=== PATIENT | female | born 1945 | race Caucasian/White ===

== ENCOUNTER → 2017-11-27 | Outpatient (CLI) | payer MEDICARE, OTHER ==
[2015-07-14 15:20] VITALS: BMI 27.6
[~2017-11-27] MED LIST: ASCO-504 PO; CALC500T6 PO; CHOL500045 PO; CIPR-214 PO; CIPR-344 PO; CIPR500S3 PO; CLIN300C99 PO; CRAN500C10 PO; DOCU-416 PO; ERG400 PO; FLAX100042 PO; GLUC-198 PO; HYDR2TAB74 PO; LATOD OU; LEVO50TA86 PO; LOR5/325 PO; LOSA50TA72 PO; LUTE6CAP11 PO; METO25TA91 PO; METXL50 PO; MULT-820 PO; MULT1TAB64 PO; NEBI2.5T PO; OMEP-218 PO; ONDA4TAB PO; ONDA4TAB9 PO; ONDA4TAB97 PO; OXYC-373 PO; OXYC-865 PO; PANT40TA65 PO; PRA20 PO; PRAV10TA45 PO; PRAV20TA65 PO; RAL60 PO; RANI-366 PO; SUCR1ORA17 PO; VALS160T20 PO; VALS160T22 PO; VITA1TAB7 PO; WARF2.5T11 PO; WARF3TAB14 PO; [UNRECOGNIZED DRUG - CODE] PO
--- NOTE | 2017-11-27 15:47 | RADIOLOGY IMAGING REPORT ---
FACILITY: [facility] PATIENT NAME: Rubi Cueva : 1945 MR: [id number] V: [id number] EXAM DATE: ORDERING PHYSICIAN: AMANUEL NAIK TECHNOLOGIST: Location: [facility] Patient: Rubi Cueva : 1945 Visit/Account:[id number] Date of Sevice: 11/27/2017 THYROID HISTORY: See Dx COMPARISON: 10/30/2016 FINDINGS: SIZE: Normal. Right lobe: 5.0 x 2.1 x 2.4 cm Left lobe: 3.9 x 0.9 x 0.9 cm Isthmus: 2 mm PARENCHYMA: Homogeneous. NODULES: Right lobe: * Within the mid body is a stable heterogeneous solid nodule that measures 3.1 x 1.9 x 2.5 cm * Superiorly there is a stable heterogeneous nodule measuring 1.0 x 0.6 x 1.1 cm * Inferiorly there is a stable heterogeneous nodule measuring 0.8 x 0.6 x 1.0 cm Left lobe: * There is a stable echogenic nodule within the inferior aspect measuring 8 x 5 x 5 mm. Isthmus: * None discrete. VASCULARITY: Within normal limits. ADDITIONAL FINDINGS: None. IMPRESSION: Stable thyroid ultrasound without appreciable change in the appearance of multiple nodules as describ ed REFERENCE: 2015 [place] [employer] Management Guidelines for Adult Patients with Thyroid Nodules and D ifferentiated Thyroid Cancer: The [place] [employer] Guidelines Task Force on Thyroid Nodul es and Differentiated Thyroid Cancer. SONOGRAPHIC PATTERNS: * Benign: Purely cystic nodules (no solid component); estimated risk of malignancy <1 percent; no bi opsy recommended. * Very Low Suspicion: Spongiform or partially cystic nodules without any of the sonographic features described in low, intermediate, or high suspicion patterns; estimated risk of malignancy <3 percent; consider FNA at > 2 cm (Observation without FNA is also a reasonable option). * Low Suspicion: Isoechoic or hyperechoic solid nodule, or partially cystic nodule with eccentric so lid areas, without microcalcification, irregular margin or ETE (extra-thyroidal extension), or taller than wide shape; estimated risk of malignancy 5-10 percent; recommend FNA at >1.5 cm. * Intermediate Suspicion: Hypoechoic solid nodule with smooth margins without microcalcifications, E TE (extra-thyroidal extension), or taller than wide shape; estimated risk of malignancy 10-20 percent ; recommend FNA at > 1 cm. * High Suspicion: Solid hypoechoic nodule or solid hypoechoic component of a partially cystic nodule with one or more of the following features: irregular margins (infiltrative, microlobulated), microc alcifications, taller than wide shape, rim calcifications with small extrusive soft tissue component, evidence of ETE (extra-thyroidal extension); estimated risk of malignancy >70-90 percent; recommend FNA at > 1 cm. NOTES: * Although a sonographically suspicious subcentimeter thyroid nodule without evidence of extrathyroi alejandro extension or sonographically suspicious lymph nodes may be observed with close sonographic follow -up rather than pursuing immediate FNA, patient age and preference may modify decision-making. * A > 50% interval increase in nodule volume and/or development of new suspicious sonographic featur es are felt to be a valid reasons for potential re-aspiration of a nodule previously shown to have be nign FNA cytology. Report Dictated By: Ildefonso Whitley at 11/27/2017 3:32 PM Report E-Signed By: Ildefonso Whitley at 11/27/2017 3:42 PM WSN:[id number]
== END ==
LOC: US 02:05
PROVIDERS: ATTEND Surgery
DX: E04.2 Nontoxic multinodular goiter (principal)
CPT/HCPCS: 76536

== ENCOUNTER 2018-01-19 17:46 | Emergency (ER) | payer MEDICARE, OTHER ==
[2015-07-14 15:20] VITALS: Wt 74.4 kg
[~2018-01-19 17:46] MED LIST changes: -LOSA50TA72 PO; +LOSA50TA74 PO
--- NOTE | 2018-01-19 17:58 | ER Report ---
History and Physical Time Seen By MD: 17:59 Hx. of Stated Complaint: PT REPORTS LOWER ABDOMINAL CRAMPING, HOT FLASHES AND FATIGUE SINCE YESTERDAY. HPI/ROS CHIEF COMPLAINT: Abdominal pain HISTORY OF PRESENT ILLNESS: 72-year-old female patient presents to emergency room with complaint of abdominal pain. Patient states she's been having this for the past several days. States the pain seems to be more in the suprapubic re gion. She states that the pain is fairly constant there is nothing seems to make the pain better or worse. She initially thought that she is having a urinary tract infection and did take some Azo. States that did not help with the pain. She also took some magnesium citrate thinking she may be constipated. She states that that did not seem to help either, however she said state that she had no worsening pain with bowel movements. She denies having any fevers but does state that she is been achy for the past several days. She denies any nausea, vomiting or diarrhea. REVIEW OF SYSTEMS: Respiratory: No cough, no dyspnea. Cardiovascular: No chest pain, no palpitations. Gastrointestinal: As noted above Musculoskeletal: No back pain. Allergies: Coded Allergies: metronidazole (Verified Allergy, Intermediate, RASH, 01/19/18) "BUMPS UNDER SKIN" Penicillins (Verified Allergy, Mild, RASH, 01/19/18) Home Meds Active Scripts Hydrocodone Bit/Acetaminophen (HYDROCODON-ACETAMINOPHEN 5-325) 1 Each Tablet, 1 EACH PO Q4-6H PRN for PAIN, #6 TAB Prov:LARRY COSME [facility] 01/19/18 Moxifloxacin HCl (Moxifloxacin HCl) 400 Mg Tablet, 1 TAB PO DAILY, #9 TAB Prov:LARRY COSME [facility] 01/19/18 Reported Medications Levothyroxine Sodium (LEVOTHYROXINE SODIUM) 50 Mcg Tablet, 25 MCG PO QDAY, TAB 02/08/17 Pravastatin Sodium (PRAVACHOL) 20 Mg Tablet, 10 MG PO QDAY, TAB 11/17/15 Valsartan (DIOVAN) 160 Mg Tablet, 160 MG PO QDAY 02/07/15 Discontinued Reported Medications Vitamin D3/Vitamin K2 (Mk4) (K2 Plus D3 Tablet) 1,000 Unit-100 Mcg Tablet, 1 TAB PO QDAY 11/12/16 Past Medical/Surgical History Patient has a past medical history of DVT, hypertension, hyperlipidemia, eosinophilic esophagitis, gastritis, reflux, hiatal hernia, breast cancer, arthritis, diverticulitis, anxiety. Patient has surgical history of lumpectomy, lymph node removal, laser eye surgery for glaucoma, anemia neck to me, joint replacement, hysterectomy, colonoscopy, cholecystectomy. Patient has a family medical history of cancer. Reviewed Nurses Notes: Yes Hx Smoking: No Smoking Status: Never Smoker Exposure to Second Hand Smoke?: No Hx Substance Use Disorder: No Hx Alcohol Use: No Constitutional Vital Sign - Last 24 Hours 01/19/18 01/19/18 01/19/18 01/19/18 17:53 17:55 18:00 18:01 Pulse 106 106 Resp 18 B/P (MAP) 130/84 130/84 (99) 152/120 (131) Pulse Ox 90 90 01/19/18 01/19/18 01/19/18 01/19/18 18:16 18:30 19:30 20:00 Pulse 95 B/P (MAP) 129/78 (95) 136/66 (89) 137/85 (102) Pulse Ox 85 92 Physical Exam General Appearance: The patient is alert, has no immediate need for airway protection and no current signs of toxicity. Respiratory: Chest is non tender, lungs are clear to auscultation. Cardiac: regular rate and rhythm Gastrointestinal: Abdomen is soft and tender in the periumbilical region., no masses, bowel sounds normal. Musculoskeletal: Neck: Neck is supple and non tender. Extremities have full range of motion and are non tender. Skin: No rashes or lesions. DIFFERENTIAL DIAGNOSIS: After history and physical exam differential diagnosis was considered for abdominal pain including but not limited to appendicitis, cholecystitis, gastritis and urinary tract infection. Medical Decision Making Data Points Result Diagram: 01/19/188 01/19/181817 Laboratory Hematology Test 01/19/18 17:49 01/19/18 18:18 Urine Color [place] Urine Clarity Clear Urine pH Color interference Urine Specific [place] Color interference Urine Protein Color interference Urine Glucose (UA) Color interference Urine Ketones Color interference Urine Blood Color interference Urine Nitrite Color interference Urine Bilirubin Color interference Urine Urobilinogen Color interference Urine Leukocyte Esterase Color interference Urine RBC 1 /HPF (0-2/HPF) Urine WBC 3 /HPF (0-5/HPF) Urine Squamous Epithelial Cells Many /LPF (</=FEW) Urine Bacteria Negative /HPF (NONE-FEW) Urine Mucus Few /HPF (NONE-FEW) Red Blood Count 5.75 M/uL (4.17-5.56) Mean Corpuscular Volume 84.9 fL (80.0-96.0) Mean Corpuscular Hemoglobin 28.8 pg (26.0-33.0) Mean Corpuscular Hemoglobin Concent 33.9 g/dL (32.0-36.0) Red Cell Distribution Width 14.3 % (11.5-14.5) Mean Platelet Volume 8.5 fL (7.2-11.1) Neutrophils (%) (Auto) 75.7 % (39.4-72.5) Lymphocytes (%) (Auto) 13.4 % (17.6-49.6) Monocytes (%) (Auto) 7.4 % (4.1-12.4) Eosinophils (%) (Auto) 2.4 % (0.4-6.7) Basophils (%) (Auto) 1.1 % (0.3-1.4) Nucleated RBC Relative Count (auto) 0.0 /100WBC Neutrophils # (Auto) 10.9 K/uL (2.0-7.4) Lymphocytes # (Auto) 1.9 K/uL (1.3-3.6) Monocytes # (Auto) 1.1 K/uL (0.3-1.0) Eosinophils # (Auto) 0.3 K/uL (0.0-0.5) Basophils # (Auto) 0.2 K/uL (0.0-0.1) Nucleated RBC Absolute Count (auto) 0.00 K/uL Sodium Level 136 mmol/L (137-145) Potassium Level 3.6 mmol/L (3.5-5.0) Chloride Level 100 mmol/L (98-107) Carbon Dioxide Level 24 mmol/L (22-31) Blood Urea Nitrogen 18 mg/dl (7-18) Creatinine 0.90 mg/dl (0.52-1.04) Glomerular Filtration Rate Calc > 60.0 Random Glucose 138 mg/dl (75-110) Calcium Level 9.2 mg/dl (8.4-10.2) Total Bilirubin 0.7 mg/dl (0.2-1.3) Aspartate Amino Transf (AST/SGOT) 67 U/L (0-35) Alanine Aminotransferase (ALT/SGPT) 64 U/L (0-56) Alkaline Phosphatase 120 U/L (0-126) C-Reactive Protein 5.2 mg/dl (<1.0) Total Protein 7.4 g/dl (6.3-8.2) Albumin 4.6 g/dl (3.5-5.0) Chemistry Test 01/19/18 17:49 01/19/18 18:18 Urine Color [place] Urine Clarity Clear Urine pH Color interference Urine Specific [place] Color interference Urine Protein Color interference Urine Glucose (UA) Color interference Urine Ketones Color interference Urine Blood Color interference Urine Nitrite Color interference Urine Bilirubin Color interference Urine Urobilinogen Color interference Urine Leukocyte Esterase Color interference Urine RBC 1 /HPF (0-2/HPF) Urine WBC 3 /HPF (0-5/HPF) Urine Squamous Epithelial Cells Many /LPF (</=FEW) Urine Bacteria Negative /HPF (NONE-FEW) Urine Mucus Few /HPF (NONE-FEW) White Blood Count 14.4 k/uL (4.5-11.0) Red Blood Count 5.75 M/uL (4.17-5.56) Hemoglobin 16.5 g/dL (12.0-16.0) Hematocrit 48.9 % (34.0-47.0) Mean Corpuscular Volume 84.9 fL (80.0-96.0) Mean Corpuscular Hemoglobin 28.8 pg (26.0-33.0) Mean Corpuscular Hemoglobin Concent 33.9 g/dL (32.0-36.0) Red Cell Distribution Width 14.3 % (11.5-14.5) Platelet Count 238 K/uL (150-450) Mean Platelet Volume 8.5 fL (7.2-11.1) Neutrophils (%) (Auto) 75.7 % (39.4-72.5) Lymphocytes (%) (Auto) 13.4 % (17.6-49.6) Monocytes (%) (Auto) 7.4 % (4.1-12.4) Eosinophils (%) (Auto) 2.4 % (0.4-6.7) Basophils (%) (Auto) 1.1 % (0.3-1.4) Nucleated RBC Relative Count (auto) 0.0 /100WBC Neutrophils # (Auto) 10.9 K/uL (2.0-7.4) Lymphocytes # (Auto) 1.9 K/uL (1.3-3.6) Monocytes # (Auto) 1.1 K/uL (0.3-1.0) Eosinophils # (Auto) 0.3 K/uL (0.0-0.5) Basophils # (Auto) 0.2 K/uL (0.0-0.1) Nucleated RBC Absolute Count (auto) 0.00 K/uL Glomerular Filtration Rate Calc > 60.0 Calcium Level 9.2 mg/dl (8.4-10.2) Total Bilirubin 0.7 mg/dl (0.2-1.3) Aspartate Amino Transf (AST/SGOT) 67 U/L (0-35) Alanine Aminotransferase (ALT/SGPT) 64 U/L (0-56) Alkaline Phosphatase 120 U/L (0-126) C-Reactive Protein 5.2 mg/dl (<1.0) Total Protein 7.4 g/dl (6.3-8.2) Albumin 4.6 g/dl (3.5-5.0) Urinalysis Test 01/19/18 17:49 Urine Color [place] Urine Clarity Clear Urine pH Color interference Urine Specific [place] Color interference Urine Protein Color interference Urine Glucose (UA) Color interference Urine Ketones Color interference Urine Blood Color interference Urine Nitrite Color interference Urine Bilirubin Color interference Urine Urobilinogen Color interference Urine Leukocyte Esterase Color interference Urine RBC 1 /HPF (0-2/HPF) Urine WBC 3 /HPF (0-5/HPF) Urine Squamous Epithelial Cells Many /LPF (</=FEW) Urine Bacteria Negative /HPF (NONE-FEW) Urine Mucus Few /HPF (NONE-FEW) EKG/Imaging Imaging CT abdomen and pelvis with IV contrast Indication: Abdominal pain. Comparison: 06/01/2016.. Technique: Axial CT images were obtained through the abdomen and pelvis during injection of nonionic iodinated intravenous contrast. Reformatted coronal and sagittal images were also obtained. One of the following dose optimization techniques was utilized in the performance of this exam: Automated exposure control; adjustment of the mA and/or kV according to the patient's size; or use of an iterative shannon nstruction technique. Specific details can be referenced in the facility's radiology CT exam operational policy. Contrast: 75 ml of Isovue-370 IV contrast. Findings: Lower lung camacho: The lateral aspect right lower lobe shows a stable 3 mm nodule. As this is less than 6 mm, no further evaluation. Lung bases otherwise clear. Liver: Stable cyst in the right lobe liver. No other focal abnormality. Biliary: Status post cholecystectomy. The biliary system is unremarkable. Pancreas: No focal abnormality. Spleen: Normal appearance. Adrenal glands: Unremarkable. Kidneys / retroperitoneum: Both kidneys show scarring without stones, hydronephrosis or discrete lesions. Bowel / peritoneum / mesenteries: Sigmoid colon show several diverticula. There is pericolonic inflammation. No discrete indication of perforation or fluid collection. The colon shows other scattered diverticula without pericolonic inflammation. No other focal abnormality of the colon. The appendix appears normal. Small bowel shows no focal abnormality or obstruction. However there is a stable small duodenal diverticulum at the second portion the duodenum measuring 1.1 cm. No focal abnormality. Stomach is unremarkable small hiatal hernia present. Tiny bit of free fluid in pelvis. No fluid collections, free air or other areas of inflammation. Tiny umbilical hernia containing fat. Lymph node assessment: No pathologic adenopathy identified. Pelvic structures: The uterus is not visualized may been surgically removed. The remaining pelvic structures visualized within normal limits. Vessels: Mild atherosclerotic calcifications seen throughout a nonaneurysmal abdominal aorta and branches. Musculoskeletal / Body wall: No acute or aggressive osseous abnormality. IMPRESSION: 1. Uncomplicated sigmoid diverticulitis. No discrete indication of perforation or fluid collection. 2. Other stable chronic findings as above. I called report to LARRY COSME at 01/19/2018 8:08 PM. Report Dictated By: Bradley Griffiths at 01/19/2018 7:49 PM Report E-Signed By: Bradley Griffiths at 01/19/2018 8:08 PM ED Course/Re-evaluation ED Course Patient was admitted to an exam room, history of physical were obtained. Differential diagnoses were considered. On examination patient did have some suprapubic tenderness. A CBC, CMP, urinalysis, CT scan of abdomen and pelvis was done. Patient had a negative urinalysis, 3 white blood cells per high-power field. Patient did have a white count of 14,000. Lites lites were unremarkable. CT scan did show a sigmoid diverticulitis. I discussed the findings with patient. We discussed treatment options. Patient states she had a bad reaction t o Flagyl in the past. We will go ahead and treat her with moxifloxacin. She is to follow-up with her primary care provider in the next week. She is to take her medications as prescribed. We did give her a prescription for a lump supply pain medication. Patient verbalized understanding and agreement with plan. Decision to Disposition Date: Jan 19, 2018 Decision to Disposition Time: 20:44 Depart Departure Latest Vital Signs Vital Signs Date Time Temp Pulse Resp B/P (MAP) Pulse Ox O2 Delivery O2 Flow Rate FiO2 01/19/18 20:00 95 137/85 (102) 92 01/19/18 17:53 18 Impression: Primary Impression: Sigmoid diverticulitis Condition: Improved Disposition: HOME OR SELF-CARE Referrals: TAY FOX (PCP) New Scripts Hydrocodone Bit/Acetaminophen (HYDROCODON-ACETAMINOPHEN 5-325) 1 Each Tablet 1 EACH PO Q4-6H PRN for PAIN, #6 TAB Prov: LARRY COSME 01/19/18 Moxifloxacin HCl (Moxifloxacin HCl) 400 Mg Tablet 1 TAB PO DAILY, #9 TAB Prov: LARRY COSME 01/19/18 Patient Instructions: Diverticulitis (ED) Additional Instructions: Increase fluid intake. Get plenty of rest. Follow up with your primary care provider in the next week. Return to the ER if condition worsens. Take your medication as prescribed. LARRY COSME Jan 19, 2018 17:58
[2018-01-19] MEDS ORDERED: NS(*) 0.9% 1000 ML BAG 1,000 ML IV ONE (18:07)
[2018-01-19] MEDS ORDERED: IOPAMIDOL 76% 75 ML INFUS BTL 75 ML ONE (18:28)
[2018-01-19 18:29] LABS: PLATELET COUNT, AUTOMATED 238 K/uL (150-450)
[2018-01-19 20:00] VITALS: BP 137/85
--- NOTE | 2018-01-19 20:11 | RADIOLOGY IMAGING REPORT ---
FACILITY: [facility] [place] PATIENT NAME: Rubi Cueva : 1945 MR: [id number] V: [id number] EXAM DATE: ORDERING PHYSICIAN: LARRY COSME TECHNOLOGIST: [place] [facility] [place] C[place] : 1945 Visit/Account:[id number] Date of Sevice: 01/19/2018 CT abdomen and pelvis with IV contrast Indication: Abdominal pain. Comparison: 06/01/2016.. Technique: Axial CT images were obtained through the abdomen and pelvis during injection of nonioni c iodinated intravenous contrast. Reformatted coronal and sagittal images were also obtained. One of the following dose optimization techniques was utilized in the performance of this exam: Autom ated exposure control; adjustment of the mA and/or kV according to the patient's size; or use of an i terative reconstruction technique. Specific details can be referenced in the facility's radiology C T exam operational policy. Contrast: 75 ml of Isovue-370 IV contrast. Findings: Lower lung camacho: The lateral aspect right lower lobe shows a stable 3 mm nodule. As this is less th an 6 mm, no further evaluation. Lung bases otherwise clear. Liver: Stable cyst in the right lobe liver. No other focal abnormality. Biliary: Status post cholecystectomy. The biliary system is unremarkable. Pancreas: No focal abnormality. Spleen: Normal appearance. Adrenal glands: Unremarkable. Kidneys / retroperitoneum: Both kidneys show scarring without stones, hydronephrosis or discrete lesi ons. Bowel / peritoneum / mesenteries: Sigmoid colon show several diverticula. There is pericolonic inflam mation. No discrete indication of perforation or fluid collection. The colon shows other scattered di verticula without pericolonic inflammation. No other focal abnormality of the colon. The appendix tejinder ears normal. Small bowel shows no focal abnormality or obstruction. However there is a stable small d uodenal diverticulum at the second portion the duodenum measuring 1.1 cm. No focal abnormality. Stoma ch is unremarkable small hiatal hernia present. Tiny bit of free fluid in pelvis. No fluid collections, free air or other areas of inflammation. Tiny umbilical hernia containing fat. Lymph node assessment: No pathologic adenopathy identified. Pelvic structures: The uterus is not visualized may been surgically removed. The remaining pelvic structures visualized within normal limits. Vessels: Mild atherosclerotic calcifications seen throughout a nonaneurysmal abdominal aorta and bran ches. Musculoskeletal / Body wall: No acute or aggressive osseous abnormality. IMPRESSION: 1. Uncomplicated sigmoid diverticulitis. No discrete indication of perforation or fluid collection. 2. Other stable chronic findings as above. I called report to LARRY COSME at 01/19/2018 8:08 PM. Report Dictated By: Bradley Griffiths at 01/19/2018 7:49 PM Report E-Signed By: Bradley Griffiths at 01/19/2018 8:08 PM WSN:[id number]
[2018-01-19] MEDS ORDERED: HYDR-385 PO (20:42)
[2018-01-19] MEDS ORDERED: MOXI400T2 PO (20:42)
[2018-01-19] MEDS ORDERED: MOXIFLOXACIN 400 MG TAB PO ONE (20:45)
[2018-01-19] MEDS ORDERED: ACET/HYDROC 5/325MG TH ER ONLY 2 TAB/BOTTLE PO ONE (20:45)
== END 2018-01-19 20:54 | disposition home or self-care (01) ==
LOC: ER 18:17
DX: K57.32 Diverticulitis of large intestine without perforation or abscess without bleeding (principal)
CPT/HCPCS: 74177; 81001; 85025; 86140; 96360; 99284; J2280; J7030; Q9967; 82040; 82247; 82310; 82374; 82435; 82565; 82947; 84075; 84132; 84155; 84295; 84450; 84460; 84520

== ENCOUNTER 2018-04-04 09:14 | Emergency (ER) | payer MEDICARE, OTHER ==
[2015-07-14 15:20] VITALS: Wt 73.0 kg
[~2018-04-04 09:14] MED LIST changes: +HYDR-385 PO; +MOXI400T2 PO
[2018-04-04] MEDS ORDERED: METR-1 PO (09:29)
[2018-04-04] MEDS ORDERED: CIPR-344 PO (09:29)
[2018-04-04] MEDS ORDERED: OLME40TA28 PO (09:29)
--- NOTE | 2018-04-04 09:58 | ER Report ---
History and Physical Time Seen By MD: 09:45 Hx. of Stated Complaint: PT REPORTS LEFT FLANK PAIN STARTED FRIDAY, STARTED MEDS FOR DIVERTICULITIS ON FRIDAY, TODAY STILL HAVING PAIN, NAUSEA HPI/ROS CHIEF COMPLAINT: abdominal pain HISTORY OF PRESENT ILLNESS: Pt has history of diverticulitis, last episode clinically dx'd 2 wks ago and tx'd with cipro. Pain resolved until fri when she noted l flank pain (diverticulitis pain for her is usually suprapubic/llq). This has been constant, pressure, non radiating, moderate, possibly assoc with darkening of urination, and she notes nausea. She was placed on cipro/flagyl 2 d ago without relief. No prior kidney stones REVIEW OF SYSTEMS: Constitutional: No fever, no chills. Eyes: No discharge. ENT: No sore throat. Cardiovascular: No chest pain, no palpitations. Respiratory: No cough, no shortness of breath. Gastrointestinal: above Genitourinary: darker urine since Musculoskeletal: l flank pain Skin: No rashes. Neurological: No headache. Remainder of the 14 system rev: Yes Allergies: Coded Allergies: Penicillins (Verified Allergy, Mild, RASH, 04/04/18) metronidazole (Verified Adverse Reaction, Intermediate, UNKNOWN, 04/04/18) "TINGLING SENSATION OF SKIN" Home Meds Reported Medications Metronidazole (FLAGYL) 500 Mg Tablet, 500 MG PO TID, TAB 04/04/18 Ciprofloxacin Hcl 500 Mg Tab (CIPRO 500 MG TAB) 500 Mg Tablet, 500 MG PO BID, TAB 04/04/18 Olmesartan Medoxomil (BENICAR) 40 Mg Tablet, 40 MG PO DAILY 04/04/18 Pravastatin Sodium (PRAVACHOL) 20 Mg Tablet, 10 MG PO QDAY, TAB 11/17/15 Discontinued Reported Medications Levothyroxine Sodium (LEVOTHYROXINE SODIUM) 50 Mcg Tablet, 25 MCG PO QDAY, TAB 02/08/17 Valsartan (DIOVAN) 160 Mg Tablet, 160 MG PO QDAY 02/07/15 Discontinued Scripts Hydrocodone Bit/Acetaminophen (HYDROCODON-ACETAMINOPHEN 5-325) 1 Each Tablet, 1 EACH PO Q4-6H PRN for PAIN, #6 TAB Prov:LARRY COSME [employer]OM [employer] BUILDER 01/19/18 Moxifloxacin HCl (Moxifloxacin HCl) 400 Mg Tablet, 1 TAB PO DAILY, #9 TAB Prov:LARRY COSME C[employer]OM [employer] BUILDER 01/19/18 Reviewed Nurses Notes: Yes Hx Smoking: No Smoking Status: Never Smoker Exposure to Second Hand Smoke?: No Hx Substance Use Disorder: No Hx Alcohol Use: No Constitutional Vital Sign - Last 24 Hours 04/04/18 04/04/18 04/04/18 04/04/18 09:17 09:30 09:45 10:00 Temp 98.6 Pulse 102 94 102 88 Resp 18 B/P (MAP) 127/70 Pulse Ox 95 94 95 91 O2 Delivery Room Air 04/04/18 04/04/18 04/04/18 04/04/18 10:15 10:45 10:48 11:00 Pulse 84 84 80 B/P (MAP) 124/82 (96) 116/63 (80) Pulse Ox 89 90 92 Physical Exam General Appearance: [The patient is alert, has no immediate need for airway protection and no signs of toxicity.] [ ] Eyes: Pupils equal and round no pallor or injection. ENT, Mouth: Mucous membranes are moist. Respiratory: There are no retractions, lungs are clear to auscultation. Cardiovascular: Regular rate and rhythm. Gastrointestinal: mild luq/l flank/l cvat. No peritoneal sgs. Neurological: alert, moves all ext Skin: Warm and dry, no rashes. Musculoskeletal: Extremities are nontender, nonswollen and have full range of motion. DIFFERENTIAL DIAGNOSIS: After history and physical exam differential diagnosis was considered for abdominal pain including but not limited to aaa, renal pathology, obstruction, diverticulitis, appendicitis, cholecystitis, gastritis and urinary tract infection. Medical Decision Making Data Points Result Diagram: 04/04/18 1009 04/04/18 1009 Laboratory Hematology Test 04/04/18 09:35 04/04/18 10:09 Urine Color Yellow Urine Clarity Clear Urine pH 5.0 pH (4.8-9.5) Urine Specific [place] 1.010 Urine Protein Negative mg/dL (NEGATIVE) Urine Glucose (UA) Negative mg/dL (NEGATIVE) Urine Ketones Trace mg/dL (NEGATIVE) Urine Blood Negative (NEGATIVE) Urine Nitrite Negative (NEGATIVE) Urine Bilirubin Negative (NEGATIVE) Urine Urobilinogen Negative mg/dL (0.2-1.9) Urine Leukocyte Esterase Small (NEGATIVE) Urine RBC <1 /HPF (0-2/HPF) Urine WBC 1 /HPF (0-5/HPF) Urine Squamous Epithelial Cells Many /LPF (</=FEW) Urine Bacteria Few /HPF (NONE-FEW) Urine Mucus Few /HPF (NONE-FEW) Red Blood Count 4.99 M/uL (4.17-5.56) Mean Corpuscular Volume 86.0 fL (80.0-96.0) Mean Corpuscular Hemoglobin 29.2 pg (26.0-33.0) Mean Corpuscular Hemoglobin Concent 33.9 g/dL (32.0-36.0) Red Cell Distribution Width 14.8 % (11.5-14.5) Mean Platelet Volume 8.3 fL (7.2-11.1) Neutrophils (%) (Auto) 81.2 % (39.4-72.5) Lymphocytes (%) (Auto) 8.2 % (17.6-49.6) Monocytes (%) (Auto) 7.0 % (4.1-12.4) Eosinophils (%) (Auto) 2.9 % (0.4-6.7) Basophils (%) (Auto) 0.7 % (0.3-1.4) Nucleated RBC Relative Count (auto) 0.0 /100WBC Neutrophils # (Auto) 9.3 K/uL (2.0-7.4) Lymphocytes # (Auto) 0.9 K/uL (1.3-3.6) Monocytes # (Auto) 0.8 K/uL (0.3-1.0) Eosinophils # (Auto) 0.3 K/uL (0.0-0.5) Basophils # (Auto) 0.1 K/uL (0.0-0.1) Nucleated RBC Absolute Count (auto) 0.00 K/uL Sodium Level 139 mmol/L (137-145) Potassium Level 3.9 mmol/L (3.5-5.0) Chloride Level 105 mmol/L (98-107) Carbon Dioxide Level 23 mmol/L (22-31) Blood Urea Nitrogen 15 mg/dl (7-18) Creatinine 0.80 mg/dl (0.52-1.04) Glomerular Filtration Rate Calc > 60.0 Random Glucose 111 mg/dl (75-110) Calcium Level 9.3 mg/dl (8.4-10.2) Total Bilirubin 0.5 mg/dl (0.2-1.3) Aspartate Amino Transf (AST/SGOT) 46 U/L (0-35) Alanine Aminotransferase (ALT/SGPT) 71 U/L (0-56) Alkaline Phosphatase 160 U/L (0-126) Total Protein 7.7 g/dl (6.3-8.2) Albumin 4.1 g/dl (3.5-5.0) Lipase 95 U/L (23-300) Chemistry Test 04/04/18 09:35 04/04/18 10:09 Urine Color Yellow Urine Clarity Clear Urine pH 5.0 pH (4.8-9.5) Urine Specific [place] 1.010 Urine Protein Negative mg/dL (NEGATIVE) Urine Glucose (UA) Negative mg/dL (NEGATIVE) Urine Ketones Trace mg/dL (NEGATIVE) Urine Blood Negative (NEGATIVE) Urine Nitrite Negative (NEGATIVE) Urine Bilirubin Negative (NEGATIVE) Urine Urobilinogen Negative mg/dL (0.2-1.9) Urine Leukocyte Esterase Small (NEGATIVE) Urine RBC <1 /HPF (0-2/HPF) Urine WBC 1 /HPF (0-5/HPF) Urine Squamous Epithelial Cells Many /LPF (</=FEW) Urine Bacteria Few /HPF (NONE-FEW) Urine Mucus Few /HPF (NONE-FEW) White Blood Count 11.4 k/uL (4.5-11.0) Red Blood Count 4.99 M/uL (4.17-5.56) Hemoglobin 14.6 g/dL (12.0-16.0) Hematocrit 43.0 % (34.0-47.0) Mean Corpuscular Volume 86.0 fL (80.0-96.0) Mean Corpuscular Hemoglobin 29.2 pg (26.0-33.0) Mean Corpuscular Hemoglobin Concent 33.9 g/dL (32.0-36.0) Red Cell Distribution Width 14.8 % (11.5-14.5) Platelet Count 280 K/uL (150-450) Mean Platelet Volume 8.3 fL (7.2-11.1) Neutrophils (%) (Auto) 81.2 % (39.4-72.5) Lymphocytes (%) (Auto) 8.2 % (17.6-49.6) Monocytes (%) (Auto) 7.0 % (4.1-12.4) Eosinophils (%) (Auto) 2.9 % (0.4-6.7) Basophils (%) (Auto) 0.7 % (0.3-1.4) Nucleated RBC Relative Count (auto) 0.0 /100WBC Neutrophils # (Auto) 9.3 K/uL (2.0-7.4) Lymphocytes # (Auto) 0.9 K/uL (1.3-3.6) Monocytes # (Auto) 0.8 K/uL (0.3-1.0) Eosinophils # (Auto) 0.3 K/uL (0.0-0.5) Basophils # (Auto) 0.1 K/uL (0.0-0.1) Nucleated RBC Absolute Count (auto) 0.00 K/uL Glomerular Filtration Rate Calc > 60.0 Calcium Level 9.3 mg/dl (8.4-10.2) Total Bilirubin 0.5 mg/dl (0.2-1.3) Aspartate Amino Transf (AST/SGOT) 46 U/L (0-35) Alanine Aminotransferase (ALT/SGPT) 71 U/L (0-56) Alkaline Phosphatase 160 U/L (0-126) Total Protein 7.7 g/dl (6.3-8.2) Albumin 4.1 g/dl (3.5-5.0) Lipase 95 U/L (23-300) Urinalysis Test 04/04/18 09:35 Urine Color Yellow Urine Clarity Clear Urine pH 5.0 pH (4.8-9.5) Urine Specific [place] 1.010 Urine Protein Negative mg/dL (NEGATIVE) Urine Glucose (UA) Negative mg/dL (NEGATIVE) Urine Ketones Trace mg/dL (NEGATIVE) Urine Blood Negative (NEGATIVE) Urine Nitrite Negative (NEGATIVE) Urine Bilirubin Negative (NEGATIVE) Urine Urobilinogen Negative mg/dL (0.2-1.9) Urine Leukocyte Esterase Small (NEGATIVE) Urine RBC <1 /HPF (0-2/HPF) Urine WBC 1 /HPF (0-5/HPF) Urine Squamous Epithelial Cells Many /LPF (</=FEW) Urine Bacteria Few /HPF (NONE-FEW) Urine Mucus Few /HPF (NONE-FEW) ED Course/Re-evaluation ED Course Patient presents with presumed diverticulitis, however symptoms are left upper quadrant which is not typical for her. CT reveals uncomplicated diverticulitis of the transverse/descending colon. Patient does not require pain medication at this time. Her white blood cell count no elevated is less than past few evaluations. She has been on antibiotics for less than 48 hours. Recommend continuing antibiotics. I discussed at length the recommended treatment as well as strict return precautions for any worsening. Patient understands thorough instructions. Decision to Disposition Date: Apr 04, 2018 Decision to Disposition Time: 11:30 Depart Departure Latest Vital Signs Vital Signs Date Time Temp Pulse Resp B/P (MAP) Pulse Ox O2 Delivery O2 Flow Rate FiO2 04/04/18 11:00 80 116/63 (80) 92 04/04/18 09:17 98.6 18 Room Air Impression: Primary Impression: Diverticulitis large intestine Condition: Improved Disposition: HOME OR SELF-CARE Referrals: TAY FOX (PCP) Patient Instructions: Diverticulitis (ED) Additional Instructions: As we discussed, continue cipro/flagyl; plan follow up appointment with your primary doctor within 5-7 days for re-evaluation and need to extend or change antibiotics if not improving. Return immediately if worse. Problem Qualifiers Primary Impression: Diverticulitis large intestine Diverticulitis bleeding: without bleeding Diverticulitis complication: without perforation or abscess Qualified Codes: K57.32 - Diverticulitis of large intestine without perforation or abscess without bleeding LYNDSAY HORN MD Apr 04, 2018 09:58
[2018-04-04 10:20] LABS: PLATELET COUNT, AUTOMATED 280 K/uL (150-450)
--- NOTE | 2018-04-04 11:18 | RADIOLOGY IMAGING REPORT ---
FACILITY: [facility] - [place] PATIENT NAME: Rubi Cueva : 1945 MR: [id number] V: [id number] EXAM DATE: ORDERING PHYSICIAN: LYNDSAY HORN TECHNOLOGIST: Location: [facility] [place] Patient: Rubi Cueva : 1945 Visit/Account:[id number] Date of Sevice: 04/04/2018 CT abdomen and pelvis without contrast Indication: Left flank pain Comparison: CT examination January 19, 2018 Technique: Axial CT images are obtained through the abdomen and pelvis. Reformatted coronal and sagit cookie images were reviewed. IV contrast was not administered. One of the following dose optimization te chniques was utilized in the performance of this exam: Automated exposure control; adjustment of the mA and/or kV according to the patient's size; or use of an iterative reconstruction technique. [facility] details can be referenced in the facility's radiology CT exam operational policy. Findings: Lower lung camacho: Stable 3 mm nodule subpleural right lower lobe. Evaluation of the solid organs of the abdomen is limited without IV contrast. Liver: Stable cysts right hepatic lobe. Status post cholecystectomy. The intra and extrahepatic bilia ry system appears within normal limits. Pancreas: No acute finding Spleen: No acute finding Adrenal glands: Unremarkable. Kidneys / retroperitoneum: Stable without acute finding. Extrarenal pelvis on the left. Bowel / peritoneum / mesenteries: There is low-density wall thickening with significant periintestina l stranding involving the proximal descending colon. Diverticular changes noted throughout. Stable, c ircumferential wall thickening/muscular hypertrophy is seen of the proximal sigmoid colon. There is n o evidence of free air, drainable fluid collection or definable abscess. Duodenal medial diverticulum is noted emanating from the second portion of the duodenum. Lymph node assessment: No pathologic adenopathy identified. Pelvic structures: No acute finding Vessels: Mild atherosclerotic calcifications seen throughout a nonaneurysmal abdominal aorta and bran ches. Musculoskeletal / Body wall: No acute or aggressive osseous abnormality. IMPRESSION: 1. Acute diverticulitis of the proximal descending colon without evidence of drainable fluid collecti on or abscess formation. 2. Stable chronic findings as above. Results were called to Dr. LYNDSAY HORN at 04/04/2018 11:15 AM. Report Dictated By: Aj Mcgovern MD at 04/04/2018 11:02 AM Report E-Signed By: Aj Mcgovern MD at 04/04/2018 11:15 AM [id number]
[2018-04-04 11:30] VITALS: BP 110/81
== END 2018-04-04 11:40 | disposition home or self-care (01) ==
LOC: ER 09:17
DX: K57.32 Diverticulitis of large intestine without perforation or abscess without bleeding (principal)
CPT/HCPCS: 74176; 81001; 82040; 82247; 82310; 82374; 82435; 82565; 82947; 83690; 84075; 84132; 84155; 84295; 84450; 84460; 84520; 85025; 99284

== ENCOUNTER 2018-05-23 13:56 | Emergency (ER) | payer MEDICARE, OTHER ==
[2015-07-14 15:20] VITALS: Wt 71.2 kg
[~2018-05-23 13:56] MED LIST changes: +AMOX1TAB9 PO; -LOSA50TA74 PO; +LOSA50TA80 PO; +METR-1 PO; +OLME40TA28 PO; +PANT40VI4 IVP
[2018-05-23] MEDS ORDERED: GLYCOPYRROLATE 0.2MG/ML 1 ML INJ IVP ONE (14:45)
[2018-05-23] MEDS ORDERED: NS(*) 0.9% 1000 ML BAG 1,000 ML IV ONE (14:45)
--- NOTE | 2018-05-23 14:59 | ER Report ---
History and Physical Time Seen By MD: 14:00 Hx. of Stated Complaint: ABD CRAMPING WITH LOOSE STOOL HPI/ROS CHIEF COMPLAINT: Diarrhea, abdominal pain HISTORY OF PRESENT ILLNESS: Patient has had prolonged recent history of diverticulitis. This began last fall and she has had multiple rounds of antibiotics and hospital admission last month. Patient has most recently been on amoxicillin after hospitalization until yesterday. She states that overall abdominal pain has improved, however she has had ongoing loose stools multiple times a day. This morning she ate a larger than normal breakfast and soon after felt significant abdominal cramping followed by multiple loose formed stools. Stools are not bloody, black, malodorous. Patient is now concerned that she may have C. difficile given increasing volume of stools and abdominal cramping. REVIEW OF SYSTEMS: Constitutional: [No fever, no chills.] Eyes: [No discharge.] ENT: [No sore throat.] Cardiovascular: [No chest pain, no palpitations.] Respiratory: [No cough, no shortness of breath.] Gastrointestinal: [No abdominal pain, no vomiting.] Genitourinary: [No hematuria.] Musculoskeletal: [No back pain.] Skin: [No rashes.] Neurological: [No headache.] Remainder of the 14 system rev: Yes Allergies: Coded Allergies: No Known Allergies (Verified Allergy, Unknown, 05/23/18) Home Meds Active Scripts Pantoprazole Sodium (PANTOPRAZOLE SODIUM) 40 Mg Tablet.dr, 40 MG PO QDAY for 14 Days, TAB.SR 1 Refill Prov:JOSE RAFAEL ASHRAF MD 05/12/18 Amoxicillin/Potassium Clav (AMOX TR-K CLV 875-125 MG TAB) 1 Each Tablet, 875 MG PO BIDBS for 14 Days, #28 TAB 0 Refills Prov:JOSE RAFAEL ASHRAF MD 05/12/18 Reported Medications Olmesartan Medoxomil (BENICAR) 40 Mg Tablet, 40 MG PO DAILY 04/04/18 Pravastatin Sodium (PRAVACHOL) 20 Mg Tablet, 10 MG PO QDAY, TAB 11/17/15 Reviewed Nurses Notes: Yes Hx Smoking: No Smoking Status: Never Smoker Exposure to Second Hand Smoke?: No Hx Substance Use Disorder: No Hx Alcohol Use: No Constitutional Vital Sign - Last 24 Hours 05/23/18 14:06 Temp 97.6 Pulse 79 Resp 13 B/P (MAP) 154/83 Pulse Ox 95 O2 Delivery Room Air Physical Exam General Appearance: The patient is alert, has no immediate need for airway protection and no signs of toxicity. Eyes: Pupils equal and round no pallor or injection. ENT, Mouth: Mucous membranes are moist. Respiratory: There are no retractions, lungs are clear to auscultation. Cardiovascular: Regular rate and rhythm. Gastrointestinal: Abdomen is soft and non tender, no masses. BS are hyperactive Neurological: alert, oriented, nad Skin: Warm and dry, no rashes. Musculoskeletal: Extremities are nontender, nonswollen and have full range of motion. DIFFERENTIAL DIAGNOSIS: After history and physical exam differential diagnosis was considered for c dif, other infectious/invasive diarrhea, complication of diverticulitis, acute abdomen, or other emergent etiology Medical Decision Making Data Points Result Diagram: 05/23/18 1526 05/23/18 1526 Laboratory Hematology Test 05/23/18 15:08 05/23/18 15:26 Clostridium Difficile Toxin A & B Negative Clostridium difficile Antigen Negative Red Blood Count 5.57 M/uL (4.17-5.56) Mean Corpuscular Volume 85.8 fL (80.0-96.0) Mean Corpuscular Hemoglobin 28.5 pg (26.0-33.0) Mean Corpuscular Hemoglobin Concent 33.3 g/dL (32.0-36.0) Red Cell Distribution Width 14.8 % (11.5-14.5) Mean Platelet Volume 9.0 fL (7.2-11.1) Neutrophils (%) (Auto) 80.2 % (39.4-72.5) Lymphocytes (%) (Auto) 13.0 % (17.6-49.6) Monocytes (%) (Auto) 3.5 % (4.1-12.4) Eosinophils (%) (Auto) 2.7 % (0.4-6.7) Basophils (%) (Auto) 0.6 % (0.3-1.4) Nucleated RBC Relative Count (auto) 0.3 /100WBC Neutrophils # (Auto) 8.1 K/uL (2.0-7.4) Lymphocytes # (Auto) 1.3 K/uL (1.3-3.6) Monocytes # (Auto) 0.4 K/uL (0.3-1.0) Eosinophils # (Auto) 0.3 K/uL (0.0-0.5) Basophils # (Auto) 0.1 K/uL (0.0-0.1) Nucleated RBC Absolute Count (auto) 0.03 K/uL Peripheral Blood Smear Yes Y/N Sodium Level 138 mmol/L (137-145) Potassium Level 4.5 mmol/L (3.5-5.0) Chloride Level 102 mmol/L (98-107) Carbon Dioxide Level 26 mmol/L (22-31) Blood Urea Nitrogen 21 mg/dl (7-18) Creatinine 0.70 mg/dl (0.52-1.04) Glomerular Filtration Rate Calc > 60.0 Random Glucose 109 mg/dl (75-110) Calcium Level 9.7 mg/dl (8.4-10.2) Total Bilirubin 0.4 mg/dl (0.2-1.3) Aspartate Amino Transf (AST/SGOT) 53 U/L (0-35) Alanine Aminotransferase (ALT/SGPT) 58 U/L (0-56) Alkaline Phosphatase 112 U/L (0-126) Total Protein 8.0 g/dl (6.3-8.2) Albumin 4.5 g/dl (3.5-5.0) Lipase 234 U/L (23-300) Chemistry Test 05/23/18 15:08 05/23/18 15:26 Clostridium Difficile Toxin A & B Negative Clostridium difficile Antigen Negative White Blood Count 10.1 k/uL (4.5-11.0) Red Blood Count 5.57 M/uL (4.17-5.56) Hemoglobin 15.9 g/dL (12.0-16.0) Hematocrit 47.8 % (34.0-47.0) Mean Corpuscular Volume 85.8 fL (80.0-96.0) Mean Corpuscular Hemoglobin 28.5 pg (26.0-33.0) Mean Corpuscular Hemoglobin Concent 33.3 g/dL (32.0-36.0) Red Cell Distribution Width 14.8 % (11.5-14.5) Platelet Count 303 K/uL (150-450) Mean Platelet Volume 9.0 fL (7.2-11.1) Neutrophils (%) (Auto) 80.2 % (39.4-72.5) Lymphocytes (%) (Auto) 13.0 % (17.6-49.6) Monocytes (%) (Auto) 3.5 % (4.1-12.4) Eosinophils (%) (Auto) 2.7 % (0.4-6.7) Basophils (%) (Auto) 0.6 % (0.3-1.4) Nucleated RBC Relative Count (auto) 0.3 /100WBC Neutrophils # (Auto) 8.1 K/uL (2.0-7.4) Lymphocytes # (Auto) 1.3 K/uL (1.3-3.6) Monocytes # (Auto) 0.4 K/uL (0.3-1.0) Eosinophils # (Auto) 0.3 K/uL (0.0-0.5) Basophils # (Auto) 0.1 K/uL (0.0-0.1) Nucleated RBC Absolute Count (auto) 0.03 K/uL Peripheral Blood Smear Yes Y/N Glomerular Filtration Rate Calc > 60.0 Calcium Level 9.7 mg/dl (8.4-10.2) Total Bilirubin 0.4 mg/dl (0.2-1.3) Aspartate Amino Transf (AST/SGOT) 53 U/L (0-35) Alanine Aminotransferase (ALT/SGPT) 58 U/L (0-56) Alkaline Phosphatase 112 U/L (0-126) Total Protein 8.0 g/dl (6.3-8.2) Albumin 4.5 g/dl (3.5-5.0) Lipase 234 U/L (23-300) ED Course/Re-evaluation ED Course Pt presents with multiple episodes of loose but formed, non bloody, non black stool after larger than nl meal. Has been through multiple rounds of abx and complicatedcourse of diverticulitis. However, abd is benign today and labs unremarkable. Sig improved with robinul and IVF on rpt eval. Likely hypermotile due to change in intestinal/digestive esthela. 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 Will rx bentyl prn. Pt comfortable with d/c and understands SRP's. Decision to Disposition Date: May 23, 2018 Decision to Disposition Time: 16:12 Depart Departure Latest Vital Signs Vital Signs Date Time Temp Pulse Resp B/P (MAP) Pulse Ox O2 Delivery O2 Flow Rate FiO2 05/23/18 14:06 97.6 79 13 154/83 95 Room Air Impression: Primary Impression: Diarrhea Condition: Improved Disposition: HOME OR SELF-CARE Referrals: TAY FOX (PCP) New Scripts Dicyclomine Hcl (DICYCLOMINE HCL) 20 Mg Tablet 20 MG PO QID for cramping, #10 TAB Prov: LYNDSAY HORN MD 05/23/18 Patient Instructions: Acute Diarrhea (ED) Additional Instructions: Return if vomiting and unable to tolerate fluids, concerning pain, fevers, bloody or black stool, uncontrollable diarrhea, or any concerns. Problem Qualifiers Primary Impression: Diarrhea Diarrhea type: unspecified type Qualified Codes: R19.7 - Diarrhea, unspecified LYNDSAY HORN MD May 23, 2018 14:59
[2018-05-23 15:36] LABS: PLATELET COUNT, AUTOMATED 303 K/uL (150-450)
[2018-05-23 16:00] VITALS: BP 136/66
[2018-05-23] MEDS ORDERED: DICY20TA70 PO (16:14)
== END 2018-05-23 16:31 | disposition home or self-care (01) ==
LOC: ER 14:04
DX: R19.7 Diarrhea, unspecified (principal)
CPT/HCPCS: 36415; 83690; 85025; 87324; 87449; 96374; 99283; J3490; J7030; 82040; 82247; 82310; 82374; 82435; 82565; 82947; 84075; 84132; 84155; 84295; 84450; 84460; 84520

== ENCOUNTER → 2018-06-26 | Day surgery (SDC) | payer MEDICARE, OTHER ==
[2015-07-14 15:20] VITALS: Ht 167.6 cm; Wt 69.9 kg
[~2018-06-26] VITALS: Ht 167.6 cm; Wt 69.9 kg
[2018-06-26] VITALS (7 sets, daily range): BP systolic 99–142; BP diastolic 54–94
[~2018-06-26] MED LIST changes: +DICY20TA70 PO; +LIDOCAINE/SOD BICARB 8.4% SYR ID ONE; +MULT1CAP59 PO; +NORMOSOL R SOLN(*) 1000 ML BAG 1,000 ML IV PRN; +OMEG-96 PO; +TURM1POW3 MC; +VITA1CAP46 PO
--- NOTE | 2018-06-26 08:20 | Short(Outpt) Discharge Summary ---
Discharge Summary Reason for Hosp/Final Diag: (1) Diverticulitis large intestine Status: Acute Hospital Course & Plan: 73 yo f presented for egd and colonoscopy. she tolerate d the procedures well and there were no complications. path pending. pt will be discharged home when criteria met. Departure Discharge to: Home Discharge Instructions Home Meds Active Scripts Pantoprazole Sodium (PANTOPRAZOLE SODIUM) 40 Mg Tablet.dr, 40 MG PO QDAY, #30 TAB.SR 2 Refills Prov:TULIO JI 06/26/18 Reported Medications Turmeric (CURCUMIN) 1 Gm Powder, 1 GM MC QDAY 06/11/18 Vitamin B Complex (VITAMIN B COMPLEX) 1 Each Capsule, 1 EACH PO QDAY, CAPSULE 06/11/18 Multivitamin (MULTIVITAMINS) 1 Each Capsule, 1 EACH PO QDAY, CAPSULE 06/11/18 [place]-3 Fatty Acids/Fish Oil (OMEGA 3 1,000 MG SOFTGEL) 1 Each Capsule, 1 EACH PO QDAY, CAPSULE 06/11/18 Olmesartan Medoxomil (BENICAR) 40 Mg Tablet, 40 MG PO DAILY 04/04/18 Pravastatin Sodium (PRAVACHOL) 20 Mg Tablet, 10 MG PO QDAY, TAB 11/17/15 Diet: Regular Activity: As Tolerated Special Instructions: we will call you in 10 days with biopsy results. TULIO JI Jun 26, 2018 08:20
== END ==
LOC: OR 00:17
PROVIDERS: ATTEND Surgery
DX: Z12.11 Encounter for screening for malignant neoplasm of colon (principal); K21.0 Gastro-esophageal reflux disease with esophagitis; K44.9 Diaphragmatic hernia without obstruction or gangrene
CPT/HCPCS: 00813; 43239; 87077; 88305; 88313; G0121

== ENCOUNTER → 2018-12-04 | Outpatient (CLI) | payer MEDICARE, OTHER ==
[2015-07-14 15:20] VITALS: BMI 27.6
[~2018-12-04] MED LIST changes: -LIDOCAINE/SOD BICARB 8.4% SYR ID ONE; -NORMOSOL R SOLN(*) 1000 ML BAG 1,000 ML IV PRN; +RANI-325 PO; -RANI-366 PO; +RANI-54 PO
--- NOTE | 2018-12-04 15:28 | RADIOLOGY IMAGING REPORT ---
FACILITY: [facility] - [place] PATIENT NAME: Rubi Cueva : 1945 MR: [id number] V: [id number] EXAM DATE: ORDERING PHYSICIAN: AMANUEL NAIK TECHNOLOGIST: Location: [facility] [place] Patient: Rubi Cueva : 1945 Visit/Account:[id number] Date of Sevice: 12/04/2018 Thyroid Ultrasound HISTORY: Thyroid nodules. COMPARISON: 11/27/2017 FINDINGS: SIZE: Normal. Right lobe: 4.9 x 2.4 x 2.2 cm (previously 5.0 x 2.1 x 2.4 cm) Left lobe: 3.5 x 0.9 x 1.3 cm (previously 3.9 x 0.9 x 0.9 cm) Isthmus: 2 mm PARENCHYMA: Homogeneous. NODULES: Right lobe: * Dominant, solid isoechoic low suspicion nodule is seen inferiorly which measures 2.1 x 3.3 x 1.9 c m (previously 2.5 x 3.1 x 1.9 cm) * Solid, isoechoic low suspicion nodule superiorly measures 1.2 x 0.7 x 1.0 cm (previously 1.0 x 0.6 x 1.1 cm) Left lobe: * Solid isoechoic mid pole nodule measures 0.6 x 0.8 x 0.5 cm (previously 0.6 x 0.5 x 0.8 cm) * Hypoechoic nodule superiorly measures 0.4 x 0.5 x 0.3 cm (previously 0.4 x 0.2 x 0.4 cm) Isthmus: * None discrete. VASCULARITY: Within normal limits. ADDITIONAL FINDINGS: None. IMPRESSION: 1. Normal sized thyroid gland with multiple bilateral nodules as detailed above. 2. Low suspicion nodule inferiorly within the right lobe is stable in size from the previous study. This does meet current criteria for FNA according to the [employer] guidelines. No other nodule meets curre nt criteria for FNA. REFERENCE: 2015 [place] [employer] Management Guidelines for Adult Patients with Thyroid Nodules and D ifferentiated Thyroid Cancer: The [place] [employer] Guidelines Task Force on Thyroid Nodul es and Differentiated Thyroid Cancer. SONOGRAPHIC PATTERNS: * Benign: Purely cystic nodules (no solid component); estimated risk of malignancy <1 percent; no bi opsy recommended. * Very Low Suspicion: Spongiform or partially cystic nodules without any of the sonographic features described in low, intermediate, or high suspicion patterns; estimated risk of malignancy <3 percent; consider FNA at > 2 cm (Observation without FNA is also a reasonable option). * Low Suspicion: Isoechoic or hyperechoic solid nodule, or partially cystic nodule with eccentric so lid areas, without microcalcification, irregular margin or ETE (extra-thyroidal extension), or taller than wide shape; estimated risk of malignancy 5-10 percent; recommend FNA at >1.5 cm. * Intermediate Suspicion: Hypoechoic solid nodule with smooth margins without microcalcifications, E TE (extra-thyroidal extension), or taller than wide shape; estimated risk of malignancy 10-20 percent ; recommend FNA at > 1 cm. * High Suspicion: Solid hypoechoic nodule or solid hypoechoic component of a partially cystic nodule with one or more of the following features: irregular margins (infiltrative, microlobulated), microc alcifications, taller than wide shape, rim calcifications with small extrusive soft tissue component, evidence of ETE (extra-thyroidal extension); estimated risk of malignancy >70-90 percent; recommend FNA at > 1 cm. NOTES: * Although a sonographically suspicious subcentimeter thyroid nodule without evidence of extrathyroi alejandro extension or sonographically suspicious lymph nodes may be observed with close sonographic follow -up rather than pursuing immediate FNA, patient age and preference may modify decision-making. A > 50% interval increase in nodule volume and/or development of new suspicious sonographic features are felt to be a valid reasons for potential re-aspiration of a nodule previously shown to have benig n FNA cytology. Report Dictated By: David Collins at 12/04/2018 3:10 PM Report E-Signed By: David Collins at 12/04/2018 3:20 PM WSN:[email or web address]
== END ==
LOC: US 02:29
PROVIDERS: ATTEND Surgery
DX: E04.1 Nontoxic single thyroid nodule (principal)
CPT/HCPCS: 76536